=== PATIENT | female | born 1975 | race Caucasian/White ===

== ENCOUNTER → 2018-03-08 15:05 | Outpatient (CLI) | payer BC, SELFPAY | PROVIDERS: Visit Provider Internal Medicine Cardiovascular Disease | DX: R00.0 Tachycardia, unspecified (principal); R06.00 Dyspnea, unspecified; R06.09 Other forms of dyspnea; R55 Syncope and collapse; E78.5 Hyperlipidemia, unspecified; I10 Essential (primary) hypertension; R06.83 Snoring; R40.0 Somnolence; R53.83 Other fatigue | CPT/HCPCS: 93225 ==

== ENCOUNTER → 2018-03-09 07:00 | Outpatient (CLI) | payer BC, OTHER, SELFPAY ==
--- NOTE | 2018-03-09 07:04 | NM_ITS ---
NM pul vent and perfuse CLINICAL INDICATION: Shortness of breath, syncope ITS.REASON: syncope and collapse ORDERING PHYSICIAN: Sander Ventura MD PATIENT AGE: 42 years Comparison: 03/09/2018 DOSE: 35.1 mCi technetium DTPA inhaled 8.36 mCi Tc MAA IV FINDINGS: Homogeneous activity is present throughout both lungs.No segmental or subsegmental defects are evident. Incidental note is made of gastric activity and may be consistent with some free technetium uptake within the stomach. IMPRESSION: Normal, no evidence of pulmonary embolus
--- NOTE | 2018-03-09 07:04 | CA_ITS ---
PROCEDURE: 2-D M-mode and color Doppler study INDICATIONS FOR THE TEST: Chest pain COPD Heart Murmur Tobacco SmokingX Palpitations Fatigue SyncopeX Edema HypertensionXDiabetes Mellitus Rheumatic Fever SOBXDOE ObesityXHyperlipidemiaX Family History HD Additional History R/O PE,TACHYCARDIA PATIENT INFORMATION HEIGHT:63 WEIGHT:211 GENDER: Female B/P:142/84 2-D/M-MODE INTERPRETATION: 2-D MEASUREMENTS OBSERVED VALUES IN CMS Right Ventricular Dimension (RVDd) 2.9 Interventricular Septum (Thickness)(IVsd) .8 Left Ventricular Internal Dimensions(LVIDd) 4.9 Left Ventricular Posterior Wall (Thickness)(LVPWd) .7 Aortic Root 3.1 Aortic Cusp Separation 2.0 Left Atrial Dimensions (LAD) 2.9 2D 1. Left atrium is normal size, left ventricle is normal size, left ventricle wall thickness is upper limit of the normal, there is preserved left ventricular systolic function, visually estimated ejection fraction 55% with no regional wall motion abnormality. 2. The right atrium and right ventricle are mildly enlarged with normal contractility. 3. The aortic, mitral and tricuspid valvular grossly normal. 4. The pulmonic valve is poorly visualized. 5. No significant pericardial effusion noted. DOPPLER INTERROGATION: Doppler interrogation of the aortic, mitral and tricuspid valve reveals presence of mild mitral and tricuspid regurgitation, tricuspid regurgitation jet velocity is inadequate for calculation of the right ventricular systolic pressure, diastolic parameters are within normal range. CONCLUSION: 1. Normal left ventricular size, preserved left ventricular systolic function, visually estimated ejection fraction 55% with no regional wall motion abnormality. Diastolic parameters are within normal range. 2. Mildly enlarged right atrium and right ventricle, contractility of the right ventricle is normal. 3. Mild mitral and tricuspid regurgitation 4. No significant pericardial effusion noted.
--- NOTE | 2018-03-09 08:25 | XR_ITS ---
XR chest 2V HISTORY: Shortness of breath, syncope ITS.REASON: PE,SOB ORDERING PHYSICIAN: Sander Ventura MD PATIENT AGE: 42 years COMPARISON: None FINDINGS: The cardiomediastinal silhouette and pulmonary vascularity are within normal limits. The lungs are clear without infiltrates, suspicious nodules, or pleural effusions. Calcified left hilar lymph nodes are present. No acute bony abnormalities. IMPRESSION: No acute finding
[2018-03-09 09:15] LABS: Microscopic, Urine URINE MICROSCOPIC (MICROSCOPIC)
[2018-03-09 09:35] LABS: Appearance,Urine CLEAR (Clear); Bilirubin,Urine Negative (Negative); Blood, Urine TRACE-L (Negative); Color,Urine YELLOW (Yellow); Glucose,Urine (UA) Negative (Negative); Ketones,Urine Negative (Negative); Leukocyte Esterase,Urine Negative (Negative); Nitrate,Urine Negative (Negative); Protein,Urine Negative (Negative); Urobilinogen,Urine 0.2 EU/dl (0.2)
[2018-03-09 09:45] LABS: Bacteria,Urine Trace /lpf
== END ==
PROVIDERS: PCP Family Medicine; Visit Provider Internal Medicine Cardiovascular Disease
DX: R55 Syncope and collapse (principal); R06.00 Dyspnea, unspecified; R00.0 Tachycardia, unspecified; R06.09 Other forms of dyspnea; E78.5 Hyperlipidemia, unspecified; I10 Essential (primary) hypertension; R06.83 Snoring; R53.83 Other fatigue; R40.0 Somnolence
CPT/HCPCS: 71046; 78582; 81001; 87086; 93306; A9540; A9567

== ENCOUNTER → 2018-04-09 15:27 | Outpatient (CLI) | payer BC, SELFPAY | PROVIDERS: Visit Provider Internal Medicine Cardiovascular Disease | DX: R40.0 Somnolence (principal); R53.83 Other fatigue; R42 Dizziness and giddiness | CPT/HCPCS: 95806 ==

== ENCOUNTER → 2018-06-27 09:56 | Outpatient (CLI) | payer BC, SELFPAY ==
--- NOTE | 2018-06-27 09:59 | MR_ITS ---
MR head/brain wo/w con HISTORY: Syncope, blackouts spells, lightheaded, disoriented, vertigo ITS.REASON: evaluation for aneurysm,brain lesion,embolism ORDERING PHYSICIAN: Trinh Denis MD PATIENT AGE: 42 years Comparison: None TECHNIQUE: Standard multiplanar multiecho sequences are performed without and with gadolinium enhancement . FINDINGS: No midline shift, mass effect, intracranial hemorrhage, or hydrocephalus is evident. No enhancing lesions are evident. The cerebellopontine angle, cerebellum, and brainstem have an unremarkable appearance there is no evidence of acute infarction. The hippocampal gyri are unremarkable and the temporal horns are symmetric. The pituitary, optic chiasm, and craniocervical junction have an unremarkable appearance. No large aneurysms are evident There is sinus air-fluid level within the left aspect of the sphenoid sinus. No mastoid effusion. IMPRESSION: 1. No acute intracranial findings. 2. Left sphenoid sinus disease with a small air-fluid level in the left aspect of the sphenoid sinus
--- NOTE | 2018-06-27 11:38 | HMH.ITSHM ---
Current Home Medications as stated by this patient Loida Lizama or front desk representative. []METOPROLOL ATORVASTATIN MONTELUKAST LEVOTHYROXINE SODIUM
--- NOTE | 2018-06-27 14:00 | HMH.TILT ---
Findings:: PROCEDURE: Upright tilt table test. REQUESTING PROVIDER: Trinh Denis MD INDICATION FOR PROCEDURE: Dizziness, near syncope, one episode of syncope HOME MEDICATIONS: Metoprolol Succinate 25 mg qd (held for past 2 days), Lipitor 10 mg qd, Levothyroxine 150 mcg qd, Montelukast 10 mg qd. PRE-TEST VITAL SIGNS: SITTING - HR 89 with NSR, BP 125/81, O2 sats 97% SUPINE - HR 85 with NSR, BP 142/64, O2 sats 99%. PROCEDURE SUMMARY: Patient was tilted upright at 85-90% for 30 minutes total with no syncope or near syncope. She did complain of being slightly light-headed when first tilted into the upright position, but this quickly resolved and she had no other complaints throughout the procedure. Her blood pressure slowly dropped to a low of 123/77 during the test (similar to her pretest sitting BP) but was not associated with any symptoms or complaints. HR increased to 103 bpm when tilted upright and then stayed between 88 and 107 bpm. O2 sats were high 90s throughout. COMPLICATIONS: none CONCLUSIONS: unremarkable tilt table test.
== END ==
PROVIDERS: PCP Family Medicine; Visit Provider Specialist
DX: M54.2 Cervicalgia (principal); R42 Dizziness and giddiness; R55 Syncope and collapse
CPT/HCPCS: 70553; A9576

== ENCOUNTER → 2018-06-28 07:59 | Outpatient (CLI) | payer BC, SELFPAY ==
--- NOTE | 2018-06-28 08:02 | MR_ITS ---
MR venography head wo con CLINICAL INDICATION: Syncope with dizziness ITS.REASON: evaluation for aneurysm,brain lesion,embolism ORDERING PHYSICIAN: Trinh Denis MD PATIENT AGE: 42 years Comparison: 06/27/2018 TECHNIQUE: 2-D [id number] images without contrast with 3-D MIP reformats FINDINGS: The posterior aspect of the superior sagittal sinus is not well demonstrated possibly due to flow artifact. Flow gap is present at the torcula. No other significant anomalies are evident. IMPRESSION: There is poor visualization of the posterior aspect of the superior sagittal sinus. This may only be related to artifact. This could be confirmed with CT angiogram if clinically desired. Otherwise negative
--- NOTE | 2018-06-28 08:02 | MR_ITS ---
MR angio neck wo con CLINICAL INDICATION: Dizziness with syncope ITS.REASON: evaluation for aneurysm,brain lesion,embolism ORDERING PHYSICIAN: Trinh Denis MD PATIENT AGE: 42 years Comparison: None TECHNIQUE: 3-D multislab [id number]-qt-[id number] images are obtained with MIP reformats. FINDINGS: The carotids within the neck have an unremarkable appearance. No stenosis or aneurysm is evident. Bilateral vertebral arteries are patent. The aortic arch and proximal great vessels are not well delineated on this exam. IMPRESSION: Negative MRA of the neck
== END ==
PROVIDERS: PCP Family Medicine; Visit Provider Specialist
DX: M54.2 Cervicalgia (principal); R42 Dizziness and giddiness; R55 Syncope and collapse
CPT/HCPCS: 70544; 70547

== ENCOUNTER 2018-09-05 17:00 | Outpatient (RCR) | payer BC, SELFPAY ==
--- NOTE | 2018-07-11 09:11 | HMH.PTOPEV ---
PT Outpatient Evaluation Rehab PT Outpatient Evaluation Start: 07/11/18 08:09 Freq: Status: Active Protocol: Document 07/11/18 08:29 JOAQUÍN (Rec: 07/11/18 09:10 JOAQUÍN [id number]) Electronically Signed By Alexander Alejandra, PT 07/11/18 08:29 Outpatient Therapy Subjective History Subjective History Pt reports to PT for c/o dizziness and one incident of passing/blacking out . Pt reports these S&S began on Mar.07. Pt reports she was walking into work and started feeling light headed, and vision started failing. Pt rpeorts she passed out and struck head on concrete. Pt rpeorts she was taken to ER, has seen cardiology, neurology and sees ENT tomorrow. Pt rpeorts she has had CT of head , neck, torso, EKG, cardiac enzyme work up, MRI of brain, MRV, MRA. Chief Complaint Other Symptom Type Other Symptoms Relieved By Rest/Positioning Symptoms Aggravated By Twisting,Walking Prior Functional Limitations None Current Functional Limitations Housework,Driving,Recreation Activity,Walking,Balance Symptom Description Intermittent Level of pain today (0-10) 0 Pain scale - at its best (0-10) 0 Pain scale - at its worst (0-10) 0 Balance Eval Subjective Hx of Complaint Comment began insidiously Mar 07 Chief Complaint Did you feel dizzy, unsteady or faint? Yes Activity at onset Walking Prior Functional Limitations Prior Functional [place] Level Fully Independent Current Functional Limitations Comment Severe motion sensitivity Hx of Falls Hx Falls Yes Number in last 6 months 1 Gait/Posture Asssessment General Gait Observation Shuffling Step Assistive Devices None / NA Level of Transfer Assist Standby Assistance Nystagmus Nystagmus Presence None Timed Up and Go Test 3. Is the Timed Up and Go Test result < yes 12 seconds? Oculomotor Gaze Oculomotor Gaze Nml: Smooth Pursuit Saccades Abn: [employer] Cancellation Cover/Uncover Cross Cover Outpatient Therapy Assessment Impairments Problems/Im
== END 2018-09-05 17:05 | disposition home or self-care (01) ==
LOC: PT 17:00
PROVIDERS: Visit Provider Specialist
DX: R42 Dizziness and giddiness (principal)
CPT/HCPCS: 97010; 97012; 97014; 97110; 97112; 97140; 97163; 97164; G0283

== ENCOUNTER 2020-10-31 15:05 | Emergency (ER) | payer BC, SELFPAY ==
--- NOTE | 2020-10-31 17:17 | HMH.EDUTC ---
[facility] [place] Disposition Clinical Impression: Viral syndrome, Exposure to COVID-19 virus Disposition: Home, Self-Care Condition on Discharge: Good Instructions: DI for COVID-19 (Suspected or Confirmed ), Preventing the Spread of Coronavirus Discharge Instructions Additional Instructions: Drink plenty of fluids. Take tylenol or ibuprofen for pain or fever. Take the medications as directed. Follow up with your regular doctor. GO TO THE ER FOR ANY WORSENING SYMPTOMS Quarantine until you know the results of your covid-19 test. If it is positive, the health department should call you and give you further instructions about your length of Quarantine and other things. Notify your school or workplace of your results and follow their instructions regarding return to work/school. Prescriptions: methylPREDNISolone [Medrol] 4 mg PO DIRECTED 6 Days #21 tab.ds.pk Transmission Status: Pending to [facility] Benzonatate [Tessalon Perle 100mg Cap] 100 mg PO TIDP PRN #30 cap PRN Reason: Cough Transmission Status: Pending to [facility] Azithromycin [Z-Buddy 250mg Tab*] 250 mg PO UD DOSE PK #6 tab Transmission Status: Pending to [facility] Referrals: Tico Jordan MD [Primary Care Provider] - Time of Disposition: 17:25 Medical Decision Making - Medical Records Medical records reviewed: No: I reviewed the patient's medical records. - Hieu Inquiry Pt receiving controlled substance: No - Lab Data Lab results reviewed: Yes: I reviewed the patient's lab results. [facility] [place] HPI - General Stated complaint: covid test Time Seen by Provider: 10/31/20 17:18 Source of Information: Patient - History of Present Illness Provider Complaint: She states that for the past 2 days, she has felt bad, ran a fever and had body aches. 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 She was around him all last week. She has not been vaccinated against covid. - Related Data Home Medications Medication Instructions Recorded Confirmed Atorvastatin Calcium [Lipitor 10mg 10 mg PO DAILY 06/15/17 03/28/19 Tablet] etonogestrel 68 mg subdermal 1 dose SUBDERMAL DAILY each 03/08/18 03/28/19 implant levothyroxine 100 mcg tablet 150 mcg PO DAILY tab 04/20/18 03/28/19 Montelukast Sodium [Montelukast 10 mg PO QPM 06/11/18 03/28/19 10mg Tab] albuterol sulfate 90 mcg/actuation INHALATION 03/28/19 03/28/19 aerosol inhaler beclomethasone dipropionate 80 INHALATION 03/28/19 03/28/19 mcg/actuation HFA breath activated aerosol cetirizine 10 mg tablet 10 mg PO DAILY tab 03/28/19 03/28/19 Previous Rx's Medication Instructions Recorded Famotidine [Pepcid 20mg Tablet] 20 mg PO DAILY 30 Days #30 tab 03/24/19 azithromycin 250 mg tablet 250 mg PO QDAY 5 Days #6 tab 03/28/19 Azithromycin [Z-Buddy 250mg Tab*] 250 mg PO UD DOSE PK #6 tab 10/31/20 Benzonatate [Tessalon Perle 100mg 100 mg PO TIDP PRN #30 cap 10/31/20 Cap] methylPREDNISolone [Medrol] 4 mg PO DIRECTED 6 Days #21 10/31/20 tab.ds.pk Allergies Allergy/AdvReac Type Severity Reaction Status Date / Time penicillin G [PENICILLIN G] Allergy Mild Verified 03/28/19 16:02 [facility] History - Hepatitis A Screen Attestation statement:: This patient has been screened for Hepatitis A risk factors. I have reviewed the patient's past medical history: Yes Medical History: Reports:: Anxiety, Hyperlipidemia, Hypertension, Kidney Stones Denies:: Diabetes Mellitus Type 1, Diabetes Mellitus Type 2 Other Medical History: Reports: Hypothyroidism Comment: Endometrosis Other Surgeries: Yes: Cholecystectomy, , Diagnostic Lap Amputation: No Fractures: No - Social History Smoking Status: Former smoker # Packs/Day (cigarettes): 1 Alcohol Intake: never Alcohol Intake Frequency:: other Substance Use Type: denies use Occupational Status: employed Housing: house Household Members: family - Psychiatric History P
[2020-10-31 17:19] VITALS: BP 145/105; PULSE 108; RESP 22; TEMP 36.6; O2SAT 97; BMI 44.1
[2020-10-31 17:38] VITALS: BP 0/0; PULSE 0; RESP 0; TEMP -17.7; TEMP 0
== END 2020-10-31 17:45 | disposition home or self-care (01) ==
PROVIDERS: Emergency Provider Nurse Practitioner Family; PCP Family Medicine
DX: Z20.822 Contact with and (suspected) exposure to COVID-19 (principal); I10 Essential (primary) hypertension; F41.9 Anxiety disorder, unspecified; E03.9 Hypothyroidism, unspecified; E78.5 Hyperlipidemia, unspecified; Z79.899 Other long term (current) drug therapy
CPT/HCPCS: 99202; G0463; U0003

== ENCOUNTER → 2021-12-29 08:54 | Outpatient (CLI) | payer BC, SELFPAY ==
[2021-12-29 09:35] VITALS: PULSE 86; PULSE 90
--- NOTE | 2021-12-29 10:31 | FL_ITS ---
FINAL REPORT CLINICAL HISTORY: . sniff test, fluoro time 0:28, diaphragm disfunction FINDINGS: SNIFF TEST HISTORY: Shortness of breath. FINDINGS: A sniff test was performed under fluoroscopy. There was symmetrical excursion of the hemidiaphragms bilaterally during breathing and sniff maneuvers. No paradoxical movement was noted with either hemidiaphragm. FLUOROSCOPY TIME: 28 seconds. 4 cine runs were obtained. IMPRESSION: Unremarkable sniff test. Films reviewed , interpreted and dictated by Dr. Sosa. Transcribed by Maurilio Stockton PA-C. Reviewed, Interpreted and Dictated by Luís Sosa III, MD Transcribed by DONATO Triplett Authenticated and [facility]
== END ==
PROVIDERS: PCP Family Medicine; Visit Provider Internal Medicine Pulmonary Disease
DX: J98.6 Disorders of diaphragm (principal)
CPT/HCPCS: 76000; 94060; 94618; 94640; 94726; 94729

== ENCOUNTER 2023-01-15 10:48 | Emergency (ER) | payer BC, SELFPAY ==
[2023-01-15 11:00] VITALS: BP 141/86; PULSE 94; RESP 18; TEMP 36.8; O2SAT 98; BMI 39.6
--- NOTE | 2023-01-15 11:17 | EXP.UTC ---
Discharge Plan Disposition Patient Disposition: Home, Self-Care Condition: Good Prescriptions Prescriptions: New azithromycin [Zithromax Z-Buddy] 250 mg tablet See Rx Instructions .ROUTE .COMPLEX 5 Days Qty: 6 0RF Rx Instructions: For 250 mg dose pack: take 500 mg today (day 1), then 250 mg for 4 days (days 2-5) methylprednisolone [Medrol (Buddy)] 4 mg tablets,dose pack See Rx Instructions .Route .COMPLEX 6 Days Qty: 21 0RF Rx Instructions: taper pack; No Action ascorbic acid-elderberry fruit 100-50 mg tablet,chewable PO .[place] Fish Oil 350-600 mg capsule PO DAILY azelastine 205.5 mcg (0.15 %) spray,non-aerosol 2 spray intranasal BID 90 Days Qty: 30 3RF Rx Instructions: administer into each nostril montelukast 10 mg tablet 10 mg PO QPM 90 Days Qty: 90 3RF Trelegy Ellipta 200-62.5-25 mcg blister with device 1 inh inhalation DAILY 90 Days Qty: 90 3RF losartan 50 mg tablet 50 mg PO DAILY rosuvastatin [Crestor] 20 mg tablet 20 mg PO DAILY Nexplanon 68 mg implant 1 dose SUBDERMAL DAILY loratadine [Allergy Relief (loratadine)] 10 mg tablet 10 mg PO DAILY cholecalciferol (vitamin D3) 25 mcg (1,000 unit) capsule 25 mcg PO DAILY biotin 5,000 mcg tablet,disintegrating 10,000 mcg PO DAILY albuterol sulfate 90 mcg/actuation HFA aerosol inhaler 2 inh inhalation Q6H PRN (Reason: shortness of breath or wheezing) 90 Days Qty: 8.5 3RF atorvastatin 10 MG tablet 10 mg PO DAILY levothyroxine 100 mcg tablet 150 mcg PO DAILY Referrals Follow up/Referrals: Pineda Ta II, MD [Primary Care Provider] - See instructions Activity Restrictions/Add. Instructions Additional Instructions/Restrictions: *Monitor Temp, Over the counter Motrin or Tylenol as directed/as needed Tylenol every 4 hours and Motrin every 6 hours (as long as your family doctor has told you that you can take it) for fever or pain. and straight to ER if unable to lower temp less than 101.0 after medication given *Warm salt water gargles may help to soothe the throat *Throat Lozenges? *Warm fluids like tea with honey may help to soothe the throat? *Sleep elevated *Humidifier/Vaporizer Your throat swab was sent for culture. Those results are typically sent to your primary care. Be sure to follow up in 2-3 days with your family doctor/primary care physician if no improvement so they can review those result and treat if necessary. If you don?t have a primary care doctor, I recommend you get one but in the mean time, you will have to return to a walk in clinic Follow up IMMEDIATELY for new or worsening symptoms or no Noticeable improvement over the next 48-72 hours. 911 for difficulty breathing or swallowing Clinical Impressions Clinical Impression: Pharyngitis Qualifiers: Pharyngitis/tonsillitis etiology: unspecified etiology Qualified Code(s): J02.9 - Acute pharyngitis, unspecified Instructions Patient Instructions: Sore Throat Discharge ED Provider: Sue Ghotra [facility] General Stated complaint: sore throat, hard to swallow, tonsils swollen Mode of Arrival: Ambulatory Source of Information: Patient Limitations: No Limitations Time Seen by Provider: 01/15/23 11:17 Description of Symptoms (Recalled from Triage Doc. by RN): PATIENT C/O SWELLING AND IRRITATION TO THROAT SINCE YESTERDAY HEENT Symptoms (Recalled from RN notes): Yes Resp Symptoms (Recalled from RN notes): No Skin Symptoms (Recalled from RN notes): No MS Symptoms (Recalled from RN notes): No Functional Status (Recalled from RN notes): WNL History of Present Illness Provider Complaint: Patient states that she has been having sore throat and irritation in the back of her throat since yesterday States that hurts when she swallows and throat feels scratchy and sore States today her throat was hurting worse so she came in to get checked Rela
[2023-01-15 11:26] LABS: UTC Strep Screen (Rapid) Negative (Negative)
[2023-01-15 11:30] VITALS: BP 141/86; PULSE 94; RESP 18; TEMP 36.8; O2SAT 98
== END 2023-01-15 11:32 | disposition home or self-care (01) ==
PROVIDERS: Emergency Provider Nurse Practitioner; PCP Pediatrics
DX: J02.9 Acute pharyngitis, unspecified (principal); J45.909 Unspecified asthma, uncomplicated; I10 Essential (primary) hypertension; E03.9 Hypothyroidism, unspecified; Z87.891 Personal history of nicotine dependence
CPT/HCPCS: 87880; 99212; 99214; G0463

== ENCOUNTER 2023-07-21 07:57 | Outpatient (CLI) | payer BC, SELFPAY ==
[2023-07-21 08:40] VITALS: PULSE 87; PULSE 95
[2023-07-21] MEDS: ALBUTEROL 0.083% 2.5 MG/3 ML NEB IH (08:40)
== END 2023-07-21 23:59 | disposition home or self-care (01) ==
LOC: RT 07:58
PROVIDERS: PCP Family Medicine; Visit Provider Internal Medicine Pulmonary Disease
DX: R06.09 Other forms of dyspnea (principal); J44.9 Chronic obstructive pulmonary disease, unspecified; Z87.891 Personal history of nicotine dependence
CPT/HCPCS: 94060; 94618; 94640

== ENCOUNTER 2023-09-12 16:15 | Emergency (ER) | payer BC, SELFPAY ==
--- NOTE | 2023-09-12 16:28 | ED_ITS ---
Discharge Plan Disposition Patient Disposition: Home, Self-Care Condition: Good Prescriptions Prescriptions: New azithromycin [Zithromax] 250 mg tablet 250 mg PO UD DOSE PK Qty: 6 0RF Rx Instructions: Take two (2) tablets today, then one (1) tablet days #2 thru #5 triamcinolone acetonide 0.1 % cream 1 applic topical BID PRN (Reason: itching) Qty: 30 0RF benzonatate 100 mg capsule 100 mg PO TIDP PRN (Reason: Cough) Qty: 30 0RF methylprednisolone 4 mg Tablets,Dose Pack 4 mg PO DIRECTED 6 Days Qty: 21 0RF Rx Instructions: Take 1 pack as directed for 6 days No Action ascorbic acid-elderberry fruit 100-50 mg tablet,chewable PO .b[place] Fish Oil 350-600 mg capsule PO DAILY azelastine 205.5 mcg (0.15 %) spray,non-aerosol 2 spray intranasal BID 90 Days Qty: 30 3RF Rx Instructions: administer into each nostril montelukast 10 mg tablet 10 mg PO QPM 90 Days Qty: 90 3RF Trelegy Ellipta 200-62.5-25 mcg blister with device 1 inh inhalation DAILY 90 Days Qty: 90 3RF losartan 50 mg tablet 50 mg PO DAILY rosuvastatin [Crestor] 20 mg tablet 20 mg PO DAILY Nexplanon 68 mg implant 1 dose SUBDERMAL DAILY loratadine [Allergy Relief (loratadine)] 10 mg tablet 10 mg PO DAILY cholecalciferol (vitamin D3) 25 mcg (1,000 unit) capsule 25 mcg PO DAILY biotin 5,000 mcg tablet,disintegrating 10,000 mcg PO DAILY albuterol sulfate 90 mcg/actuation HFA aerosol inhaler 2 inh inhalation Q6H PRN (Reason: shortness of breath or wheezing) 90 Days Qty: 8.5 3RF atorvastatin 10 MG tablet 10 mg PO DAILY levothyroxine 100 mcg tablet 150 mcg PO DAILY methylprednisolone [Medrol (Buddy)] 4 mg tablets,dose pack See Rx Instructions .Route .COMPLEX 6 Days Qty: 21 0RF Rx Instructions: taper pack; Referrals Follow up/Referrals: Tico Jordan MD [Primary Care Provider] - See instructions Activity Restrictions/Add. Instructions Additional Instructions/Restrictions: Try to identify and avoid contact with the offending substance that has caused the rash on your arm. Don't put the topical steroids (triamcinolone) on your face or your groin. Take tylenol or ibuprofen for pain or fever. Take the medications as directed. Follow up with your regular doctor. GO TO THE ER FOR ANY WORSENING SYMPTOMS Clinical Impressions Clinical Impression: Sinusitis, Otitis media, Contact dermatitis, Bee sting Stand Alone Forms Stand Alone Forms: Work/School Release Instructions Patient Instructions: Sinusitis, DI for Sinusitis, Triamcinolone Topical, Methylprednisolone, Azithromycin Discharge ED Provider: Pacheco Souza [facility] General Stated complaint: severo,rash Time Seen by Provider: 09/12/23 16:28 History of Present Illness Provider Complaint: She states that for the past 2 days she has had sinus congestion, chest tightness, sore throat, fever, body aches, chills, and malaise. Related Data Home Medications Medication Instructions Recorded Confirmed atorvastatin 10 mg tablet 10 mg PO DAILY Cholesterol 06/15/17 01/13/23 etonogestrel 68 mg subdermal 1 dose subdermal DAILY 03/08/18 01/13/23 implant (Nexplanon) control levothyroxine 100 mcg tablet 150 mcg PO DAILY THYROID 04/20/18 01/13/23 biotin 5,000 mcg disintegrating 10,000 mcg PO DAILY 11/17/21 01/13/23 tablet cholecalciferol (vitamin D3) 25 25 mcg PO DAILY 11/17/21 01/13/23 mcg (1,000 unit) capsule loratadine 10 mg tablet (Allergy 10 mg PO DAILY 11/17/21 01/13/23 Relief (loratadine)) ascorbic acid 100 mg-elderberry tab PO .boston 12/31/21 01/13/23 fruit 50 mg chewable tablet omega-3s 350 tc-las-fht-other cap PO DAILY 06/02/22 01/13/23 [id number] oil 600 mg capsule (Fish Oil) losartan 50 mg tablet 50 mg PO DAILY 01/13/23 01/13/23 rosuvastatin 20 mg tablet (Crestor) 20 mg PO DAILY 01/13/23 01/13/23 Previous Rx's Medication Instructions Recorded albuterol sulfate 90 mcg/actuation 2 inh inhalation Q6H PRN shortness 01/17/22 aerosol inhaler of breath or wheezing 90 days #8.5 grams azelastine 205.5 mcg (0.15 %) 2 spray intranasal BID 90 days #30 06/02/22 nasal spray mL fluticasone fur. 200 mcg-umeclid 1 inh inhalation DAILY 90 days #90 06/02/22 62.5 mcg-vilant 25 mcg ea inhalat.powder (Trelegy Ellipta) montelukast 10 mg tablet 10 mg PO QPM 90 days #90 tabs 06/02/22 methylprednisolone 4 mg tablets in See Rx Instructions .Route 01/15/23 a dose pack (Medrol (Buddy)) .COMPLEX 6 days #21 tabs azithromycin 250 mg tablet 250 mg PO UD DOSE PK #6 tabs 09/12/23 (Zithromax) benzonatate 100 mg capsule 100 mg PO TIDP PRN Cough #30 caps 09/12/23 methylprednisolone 4 mg tablets in 4 mg PO DIRECTED 6 days #21 tabs 09/12/23 a dose pack triamcinolone acetonide 0.1 % 1 applic topical BID PRN itching 09/12/23 topical cream #30 grams Allergies Allergy/AdvReac Type Severity Reaction Status Date / Time penicillin G [PENICILLIN G] Allergy Mild Verified 09/12/23 16:57 [facility] Disclaimer: The information contained in this section may have been updated after the patient was seen, as this information can be updated by other users. Medical History Dyspnea on exertion Moderate persistent asthma Neuromuscular weakness Allergic rhinitis Dyspnea Asthma Hypothyroidism Sinusitis HTN (hypertension) Fatigue Daytime sleepiness Near syncope Dizziness There is no strong evidence to support central etiology. Intercurrent sinusitis may be contributing factor for dizziness but she was really treated for pansinusitis which residual sphenoidal inflammation. Plan: Referral to Dr. Mcadams, ENT and see if she needs further treatment. PT/ vestibular exercises. Return to work and drive after completion of vestibular exercises. Surgical History Hx of cholecystectomy History of section Family History Other Allergies Coronary artery disease Diabetes Hyperlipidemia Hypertension Social History Smoking Status: Former smoker alcohol intake: never substance use type: denies use current occupational status: employed Travel in the last 8 weeks: None household members: family housing: house ROS Obtained: Yes All systems reviewed & no additional complaints except as documented Constitutional Constitutional: Reports chills and Reports fever(s) Eyes Eyes: Denies eye discharge ENT Ears, Nose, Mouth, and Throat: Reports as per HPI Cardiovascular Cardiovascular: Denies chest pain Respiratory Respiratory: Denies chest congestion and Reports cough Gastrointestinal Gastrointestingal: Reports nausea; Denies abdominal pain, constipation, cramping, diarrhea or vomiting Musculoskeletal Musculoskeletal: Denies arthralgias Integumentary/Breasts Skin/Breast: Denies rash Neurologic Neurologic: Denies paresthesias Physical Exam General General appearance: alert and in no apparent distress Head Head exam: atraumatic, normocephalic and normal inspection Eye Eye exam: Present normal appearance, PERRL and EOMI ENT ENT exam: Present mucous membranes moist and normal external ear exam Expanded ENT Exam TM/Canal exam: Bilateral TM: erythema and bulging Nose exam: Absent sinus tenderness Mouth exam: Present normal external inspection; Absent drooling Teeth exam: Present normal inspection Throat exam: Present tonsillar erythema, tonsillomegaly and tonsillar exudate Neck Neck exam: Present normal inspection, full ROM and trachea midline; Absent tenderness, meningismus or lymphadenopathy Chest Chest inspection: Present normal inspection and symmetric chest wall rise; Absent tenderness Respiratory Respiratory exam: Present normal lung sounds bilaterally; Absent respiratory distress, wheezes, stridor or accessory muscle use Cardiovascular Cardiovascular exam: Present regular rate and normal rhythm; Absent systolic murmur or diastolic murmur Abdominal Exam Abdominal exam: Present soft and normal bowel sounds; Absent distention, tenderness, guarding, rebound or rigidity Extremities Exam Extremities exam: Present normal inspection and normal capillary refill; Absent calf tenderness Back Exam Back exam: Present normal inspection and full ROM; Absent tenderness, CVA tenderness (R) or CVA tenderness (L) Neurological Exam Neurological exam: Present alert, oriented X3 and CN II-XII intact Psychiatric Psychiatric exam: Present normal affect and normal mood Skin Skin exam: Present warm, dry, intact and normal color Medical Decision Making Medical Records Medical records reviewed: No I reviewed the patient's medical records. Hieu Inquiry Pt receiving controlled substance: No Lab Data Lab results reviewed: Yes I reviewed the patient's lab results.
[2023-09-12 16:52] VITALS: BP 129/87; PULSE 103; RESP 18; TEMP 37.6; O2SAT 97; BMI 44.2
[2023-09-12 17:05] LABS: Influenza A, PCR Not Detected (NotDetected); Influenza B, PCR Not Detected (NotDetected)
[2023-09-12 17:06] VITALS: BP 129/87; PULSE 103; RESP 18; TEMP 37.6
[2023-09-12 17:45] LABS: Coronavirus 19, PCR Detected (NotDetected)
== END 2023-09-12 17:08 | disposition home or self-care (01) ==
PROVIDERS: Emergency Provider Nurse Practitioner Family; PCP Family Medicine
DX: U07.1 COVID-19 (principal); J01.90 Acute sinusitis, unspecified; H66.93 Otitis media, unspecified, bilateral; L25.9 Unspecified contact dermatitis, unspecified cause; T63.441A Toxic effect of venom of bees, accidental (unintentional), initial encounter; W57.XXXA Bitten or stung by nonvenomous insect and other nonvenomous arthropods, initial encounter; R50.9 Fever, unspecified
CPT/HCPCS: 87636; 99212; 99214; G0463

== ENCOUNTER 2024-01-22 16:27 | Outpatient (CLI) | payer BC, SELFPAY ==
--- NOTE | 2024-01-22 16:30 | MM_ITS ---
PROCEDURE INFORMATION: Exam: MG Bilateral Screening 3D Mammography Exam date and time: 01/22/2024 4:34 PM Age: 48 years old Clinical indication: Baseline. No family history of breast cancer. TECHNIQUE: Imaging protocol: Bilateral Screening tomosynthesis and 2D mammography including computer-aided detection (CAD) when performed. COMPARISON: No relevant prior studies available. FINDINGS: MAMMOGRAPHY: Breast composition: There are scattered areas of fibroglandular density. Mass: Oval, questionably lobulated, 0.8 cm mass in the left upper inner quadrant, posterior 3rd, 8-10 cm from the nipple, CC image [id number] frame 25 and MLO image [id number] frame 14. Architectural distortion: None. Calcifications: No suspicious calcifications. Asymmetric density: None. Skin thickening: None. Axillary adenopathy: None. IMPRESSION: Patient will be recalled for left sonography for further evaluation of a mass. ASSESSMENT: BI-RADS Category 0: Incomplete: Need Additional Imaging Evaluation.
== END 2024-01-22 23:59 | disposition home or self-care (01) ==
LOC: RAD 16:28
PROVIDERS: PCP Pediatrics; Visit Provider Pediatrics
DX: Z12.31 Encounter for screening mammogram for malignant neoplasm of breast (principal)
CPT/HCPCS: 77063; 77067

== ENCOUNTER 2024-02-04 08:12 | Emergency (ER) | payer BC, SELFPAY ==
[2024-02-04 08:13] VITALS: BP 175/102; PULSE 88; RESP 20; TEMP 36.8; O2SAT 98; BMI 44.2
--- NOTE | 2024-02-04 08:28 | XR_ITS ---
PROCEDURE INFORMATION: Exam: XR Left Shoulder Exam date and time: 02/04/2024 8:39 AM Age: 48 years old Clinical indication: Pain; Shoulder; Left; Additional info: Atraumatic L shoulder pain, a/p gh joint pain TECHNIQUE: Imaging protocol: Radiologic exam of the left shoulder. Views: 2 or more views. COMPARISON: [facility] MR angio neck wo con 06/28/2018 8:13 AM FINDINGS: Bones/joints: The glenohumeral joint is intact. There is mild hypertrophy of the acromioclavicular joint. Soft tissues: Normal. IMPRESSION: Mild left acromioclavicular joint hypertrophy.
[2024-02-04 08:30] VITALS: BP 173/99; PULSE 80; O2SAT 96
[2024-02-04] MEDS: LIDOCAINE 5% TRANSDERMAL PATCH 1 EACH TP (08:34)
[2024-02-04] MEDS: predniSONE 20MG TAB 20 MG PO (08:35)
[2024-02-04] MEDS: ACETAMINOPHEN 500MG TAB 1000 MG PO (08:35)
[2024-02-04] MEDS: IBUPROFEN 600 MG TABLET PO (08:35)
[2024-02-04] MEDS: METHOCARBAMOL 500MG TABLET 1500 MG PO (08:40)
[2024-02-04 08:45] VITALS: PULSE 83; O2SAT 95
[2024-02-04 09:00] VITALS: BP 139/95; PULSE 81; O2SAT 96
--- NOTE | 2024-02-04 09:00 | ED_ITS ---
Discharge Plan Disposition Patient Disposition: Home, Self-Care Prescriptions Prescriptions: New prednisone 20 mg tablet 20 mg PO DAILY 5 Days Qty: 5 0RF No Action ascorbic acid-elderberry fruit 100-50 mg tablet,chewable PO .[place] Fish Oil 350-600 mg capsule PO DAILY azelastine 205.5 mcg (0.15 %) spray,non-aerosol 2 spray intranasal BID 90 Days Qty: 30 3RF Rx Instructions: administer into each nostril montelukast 10 mg tablet 10 mg PO QPM 90 Days Qty: 90 3RF Trelegy Ellipta 200-62.5-25 mcg blister with device 1 inh inhalation DAILY 90 Days Qty: 90 3RF losartan 50 mg tablet 50 mg PO DAILY rosuvastatin [Crestor] 20 mg tablet 20 mg PO DAILY Nexplanon 68 mg implant 1 dose SUBDERMAL DAILY loratadine [Allergy Relief (loratadine)] 10 mg tablet 10 mg PO DAILY cholecalciferol (vitamin D3) 25 mcg (1,000 unit) capsule 25 mcg PO DAILY biotin 5,000 mcg tablet,disintegrating 10,000 mcg PO DAILY albuterol sulfate 90 mcg/actuation HFA aerosol inhaler 2 inh inhalation Q6H PRN (Reason: shortness of breath or wheezing) 90 Days Qty: 8.5 3RF atorvastatin 10 MG tablet 10 mg PO DAILY levothyroxine 100 mcg tablet 112 mcg PO DAILY methylprednisolone [Medrol (Buddy)] 4 mg tablets,dose pack See Rx Instructions .Route .COMPLEX 6 Days Qty: 21 0RF Rx Instructions: taper pack; azithromycin [Zithromax] 250 mg tablet 250 mg PO UD DOSE PK Qty: 6 0RF Rx Instructions: Take two (2) tablets today, then one (1) tablet days #2 thru #5 triamcinolone acetonide 0.1 % cream 1 applic topical BID PRN (Reason: itching) Qty: 30 0RF benzonatate 100 mg capsule 100 mg PO TIDP PRN (Reason: Cough) Qty: 30 0RF methylprednisolone 4 mg Tablets,Dose Pack 4 mg PO DIRECTED 6 Days Qty: 21 0RF Rx Instructions: Take 1 pack as directed for 6 days Referrals Follow up/Referrals: Pineda Ta II, MD [Primary Care Provider] - See instructions Activity Restrictions/Add. Instructions Additional Instructions/Restrictions: Call your family doctor to establish care for this visit to the emergency department and schedule follow-up within 48 hours to ensure improvement. If you have any worsening of your condition or any other concerning signs or symptoms, return to the emergency department or your primary care doctor for further evaluation. Call physical therapy in order to schedule follow-up for your shoulder. If this does not work, call Dr. Temple's office for further evaluation and potential MRI. Steroid each morning for the next 5 days, you can take Tylenol 1000 mg 4 times daily to help with pain as well. Sling unless sleeping, be sure to use your left upper extremity, but do not overuse it. Clinical Impressions Clinical Impression: Acute pain of left shoulder Print Language Print Language: Egyptian Discharge ED Provider: Sukhdeep Pettit General Adult HPI General Chief complaint: PAIN Stated complaint: left shoulder pain Time Seen by Provider: 02/04/24 08:17 Mode of Arrival: Ambulatory Source of Information: Patient Limitations: No Limitations Description of Symptoms (Recalled from ER Triage Doc. by RN): pt woke up from a nap on monday afternoon with left shoulder pain that hasnt gone away or gotten any better despite taking tylenol or motrin History of Present Illness HPI narrative: Please note that above description of symptoms, in this electronic medical record under categorization of recalled from ER triage doctor by RN are reflective of an initial nursing assessment, however, is not reflective of my full history and physical exam that was personally taken and clarified. Consequentially, this preceding description of symptoms, which may include the patient's categorized chief complaint in the EMR, do not reflect my personal clinical impression, and the ultimate description of history of present illness and patient stated complaints should be deferred to this section of the note. Unless stated otherwise or congruent with this section of the note, additional signs, symptoms, or incongruence should be interpreted as inaccurate with my clinical impression. Related Data Home Medications ?Medication ?Instructions ?Recorded ?Confirmed atorvastatin 10 mg tablet 10 mg PO DAILY Cholesterol 06/15/17 12/20/23 etonogestrel 68 mg subdermal 1 dose subdermal DAILY 03/08/18 12/20/23 implant (Nexplanon) control biotin 5,000 mcg disintegrating 10,000 mcg PO DAILY 11/17/21 12/20/23 tablet cholecalciferol (vitamin D3) 25 25 mcg PO DAILY 11/17/21 12/20/23 mcg (1,000 unit) capsule loratadine 10 mg tablet (Allergy 10 mg PO DAILY 11/17/21 12/20/23 Relief (loratadine)) ascorbic acid 100 mg-elderberry tab PO .[place] 12/31/21 12/20/23 fruit 50 mg chewable tablet omega-3s 350 da-uuh-sdi-other cap PO DAILY 06/02/22 12/20/23 [id number] oil 600 mg capsule (Fish Oil) losartan 50 mg tablet 50 mg PO DAILY 01/13/23 12/20/23 rosuvastatin 20 mg tablet (Crestor) 20 mg PO DAILY 01/13/23 12/20/23 levothyroxine 100 mcg tablet 112 mcg PO DAILY THYROID 12/20/23 12/20/23 Previous Rx's ?Medication ?Instructions ?Recorded albuterol sulfate 90 mcg/actuation 2 inh inhalation Q6H PRN shortness 01/17/22 aerosol inhaler of breath or wheezing 90 days #8.5 grams azelastine 205.5 mcg (0.15 %) 2 spray intranasal BID 90 days #30 06/02/22 nasal spray mL fluticasone fur. 200 mcg-umeclid 1 inh inhalation DAILY 90 days #90 06/02/22 62.5 mcg-vilant 25 mcg ea inhalat.powder (Trelegy Ellipta) montelukast 10 mg tablet 10 mg PO QPM 90 days #90 tabs 06/02/22 methylprednisolone 4 mg tablets in See Rx Instructions .Route 01/15/23 a dose pack (Medrol (Buddy)) .COMPLEX 6 days #21 tabs azithromycin 250 mg tablet 250 mg PO UD DOSE PK #6 tabs 09/12/23 (Zithromax) benzonatate 100 mg capsule 100 mg PO TIDP PRN Cough #30 caps 09/12/23 methylprednisolone 4 mg tablets in 4 mg PO DIRECTED 6 days #21 tabs 09/12/23 a dose pack triamcinolone acetonide 0.1 % 1 applic topical BID PRN itching 09/12/23 topical cream #30 grams prednisone 20 mg tablet 20 mg PO DAILY 5 days #5 tabs 02/04/24 Allergies Allergy/AdvReac Type Severity Reaction Status Date / Time penicillin G (PENICILLIN G) Allergy Mild Verified 12/20/23 14:07 [facility] Disclaimer: The information contained in this section may have been updated after the patient was seen, as this information can be updated by other users. Medical History Dyspnea on exertion Moderate persistent asthma Neuromuscular weakness Allergic rhinitis Dyspnea Asthma Hypothyroidism Sinusitis HTN (hypertension) Fatigue Daytime sleepiness Near syncope Dizziness There is no strong evidence to support central etiology. Intercurrent sinusitis may be contributing factor for dizziness but she was really treated for pansinusitis which residual sphenoidal inflammation. Plan: Referral to Dr. Mcadams, ENT and see if she needs further treatment. PT/ vestibular exercises. Return to work and drive after completion of vestibular exercises. Surgical History Hx of cholecystectomy History of section Family History Other Allergies Coronary artery disease Diabetes Hyperlipidemia Hypertension Social History Smoking Status: Never smoker alcohol intake: never substance use type: denies use current occupational status: employed household members: family housing: house Other Medical History Have you received the Pneumonia Vaccine: No ROS Obtained: Yes All systems reviewed & no additional complaints except as documented Physical Exam General General appearance: alert and in no apparent distress Head Head exam: atraumatic and normocephalic Eye Eye exam: Present normal appearance, PERRL and EOMI Neck Neck exam: Present normal inspection, full ROM and trachea midline Respiratory Respiratory exam: Absent respiratory distress, wheezes, stridor, accessory muscle use or prolonged expiratory phase Cardiovascular Cardiovascular exam: Present other (Pulses equal symmetric in upper and lower extremities) Abdominal Exam Abdominal exam: Present soft; Absent distention, tenderness or pulsatile mass Extremities Exam Extremities exam: Present other (Tenderness primarily about bicipital groove on the left as well as supraspinatus and infraspinatus muscles. Pain improved with stabilization of scapula medially. Active range of motion limited secondary to pain, passive range of motion also limited secondary to pain, but intact); Absent edema Neurological Exam Neurological exam: Present alert, oriented X3 and CN II-XII intact; Absent motor sensory deficit Skin Skin exam: Present warm and dry; Absent diaphoresis or erythema Medical Decision Making Medical Records Medical records reviewed: Yes I reviewed the patient's medical records. Screening: Per USPSTF and CDC recommendations, given the prevalence of disease in our region, it is our hospital?s policy to screen for HIV and viral Hepatitis for all patients aged 18 and over and those with ongoing risk factors. Hieu Inquiry Pt receiving controlled substance: No Hieu was queried for this patient: No Vital Signs: 02/04/24 08:13 02/04/24 08:30 02/04/24 08:45 Temperature 98.2 F Temperature Source Oral Pulse Rate 80 83 Pulse Rate [Right Radial] 88 Respiratory Rate 20 Blood Pressure 173/99 H Blood Pressure [Right Arm] 175/102 H Blood Pressure Mean [Right Arm] 126 02 Sat by Pulse Oximetry 98 96 95 Oxygen Delivery Method Room Air 02/04/24 09:00 Temperature Temperature Source Pulse Rate 81 Pulse Rate [Right Radial] Respiratory Rate Blood Pressure 139/95 H Blood Pressure [Right Arm] Blood Pressure Mean [Right Arm] 02 Sat by Pulse Oximetry 96 Oxygen Delivery Method Orders (Tests/Meds): ED MEDICATIONS Discontinued Medications Generic Name Dose Route Start Last Admin Trade Name Daneq PRN Reason Stop Dose Admin Acetaminophen 1,000 mg 02/04/24 08:27 02/04/24 08:35 Acetaminophen 500mg Tab PO 02/04/24 08:28 1,000 mg ONCE ONE Administration Ibuprofen 600 mg 02/04/24 08:27 02/04/24 08:35 Ibuprofen 600 Mg Tablet PO 02/04/24 08:28 600 mg ONCE ONE Administration Lidocaine 1 each 02/04/24 08:27 02/04/24 08:34 Lidocaine 5% Transdermal Patch TP 02/04/24 08:28 1 each ONCE ONE Administration Methocarbamol 1,500 mg 02/04/24 08:27 02/04/24 08:40 Methocarbamol 500mg Tablet PO 02/04/24 08:28 1,500 mg ONCE ONE Administration Prednisone 20 mg 02/04/24 08:27 02/04/24 08:35 Prednisone 20mg Tab PO 02/04/24 08:28 20 mg ONCE ONE Administration ORDERS Category Date Time Status Shoulder XR left minimum 2 views [XR shoulder LT min 2V Exams 02/04/24 08:28 Completed ] Stat Medical Decision Narrative: This is a 48-year-old female with history of hypertension, hyperlipidemia, prediabetes, asthma, presenting with left-sided shoulder pain. Patient states that she woke up with the shoulder pain several days prior to this. States that it has been getting worse since that time. No injury to the shoulder recently or previously, no numbness, tingling, or weakness, it is essentially all pain. Pain is primarily in anterior shoulder when asked to point. It is moderate to severe, does not radiate. Made worse with range of motion of shoulder actively. Has not taken any medications to try to make it any better. No fevers or chills, swelling, or any other outward abnormalities. History obtained with the patient. On arrival, patient in no acute distress, but holding her arm in internal rotation and elbow flexion. Neurovascularly intact. Tenderness primarily about bicipital groove on the left as well as supraspinatus and infraspinatus muscles. Pain improved with stabilization of scapula medially. Active range of motion limited secondary to pain, passive range of motion also limited secondary to pain, but intact. Tender on flexion, extension, abduction, adduction, all shoulder range of motion. No evidence of frozen shoulder. Differential includes soft tissue/rotator cuff injury, joint subluxation versus atraumatic dislocation, osteoarthritis, less likely to be septic joint, fracture, among others. Patient given acetaminophen, ibuprofen, lidocaine patch, Robaxin, prednisone 20 mg. X-rays to be obtained. X-rays on independent interpretation are negative for any acute pathology. Calcified 28 mm nodule on left side of chest appears stable and a bit smaller than it was in 2019 on co mparative chest x-ray. On reevaluation, patient resting at baseline. Meds were discussed, patient declining any home-going meds at this time other than steroid. Sling applied, outpatient follow-up was recommended with orthopedics and family doctor, as well as physical therapy. Voiced understanding. Because patient at baseline without signs or symptoms of clinical decompensation, deemed appropriate for discharge. Results were relayed to patient who voiced understanding and were agreeable to outpatient management and follow up. I discussed my clinical impression with patient and answered all questions. At this time, the evidence for any other entities in the differential is insufficient to warrant any further testing or ED observation. This was explained as well. Advisory was given that persistent or worsening symptoms require further evaluation. I confirmed the understanding of this discussion. Chemical Equipment Repairer disclaimer Much of this encounter note is an electronic railroad signal and switch operator spoken language to printed text. Electronic railroad signal and switch operator of the spoken language may permit errors. Although I have reviewed the note, some errors may still exist. Critical Care Critical Care Time Critical Care Time: No
[2024-02-04 09:41] VITALS: BP 134/92; PULSE 73; RESP 18; TEMP 36.8; O2SAT 98
--- NOTE | 2024-02-05 10:22 | PC.NURSE ---
pt's mother called to as questions regarding PT order. PT will need physical order for this pt to be evaluated. Outpatient order completed and sent to PT.
== END 2024-02-04 09:52 | disposition home or self-care (01) ==
PROVIDERS: Emergency Provider Emergency Medicine; PCP Pediatrics
DX: M25.512 Pain in left shoulder (principal)
CPT/HCPCS: 73030; 99283

== ENCOUNTER 2024-02-14 17:00 | Outpatient (RCR) | payer BC, SELFPAY | END 2024-02-14 23:59 | disposition home or self-care (01) | LOC: PT 17:00 | PROVIDERS: PCP Pediatrics; Visit Provider Pediatrics | DX: M25.512 Pain in left shoulder (principal) | CPT/HCPCS: 97110; 97163 ==

== ENCOUNTER 2024-02-19 09:45 | Day surgery (SDC) | payer BC, SELFPAY ==
[2024-02-16 13:26] VITALS: BMI 44.2
--- NOTE | 2024-02-19 09:55 | US_ITS ---
PROCEDURE INFORMATION: Exam: US Left Breast, Complete Exam date and time: 02/19/2024 10:06 AM Age: 48 years old Clinical indication: Callback from screening mammogram for a questionable mass in the left breast. TECHNIQUE: Imaging protocol: Complete ultrasound of all four quadrants of the left breast and the retroareolar regions, including ultrasound of the axilla when performed. COMPARISON: MG MM DIG SCREENING MAMM BI W/CAD 01/22/2024 4:34 PM FINDINGS: ULTRASOUND: Breast ultrasound findings: Complete scanning of the left breast is performed. There are no suspicious masses. No correlate to the question mass in the upper inner left breast on screening. No axillary adenopathy. IMPRESSION: 1. No sonographic evidence of malignancy. No correlate to the left breast finding on screening mammogram. 2. Six-month follow-up left breast mammogram is recommended. ASSESSMENT: BI-RADS Category 3: Probably benign.
--- NOTE | 2024-02-19 10:56 | P.HP_ITS ---
History of Present Illness *Admission Date: 02/19/24 *Reason for visit:: Screening colonoscopy *History of present illness: Mrs. Lizama is a 48-year-old female who is here for initial screening colonoscopy. The examination is deemed medically necessary for screening colonoscopy. The patient has been seen, interviewed and examined prior to the procedure by both myself and the anesthesia provider. [facility] Disclaimer: The information contained in this section may have been updated after the patient was seen, as this information can be updated by other users. Medical History Dyspnea on exertion Moderate persistent asthma Neuromuscular weakness Allergic rhinitis Dyspnea Asthma Hypothyroidism Sinusitis HTN (hypertension) Fatigue Daytime sleepiness Near syncope Dizziness There is no strong evidence to support central etiology. Intercurrent sinusitis may be contributing factor for dizziness but she was really treated for pansinusitis which residual sphenoidal inflammation. Plan: Referral to Dr. Mcadams, ENT and see if she needs further treatment. PT/ vestibular exercises. Return to work and drive after completion of vestibular exercises. Surgical History Hx of cholecystectomy History of section Family History Other Allergies Coronary artery disease Diabetes Hyperlipidemia Hypertension Social History Smoking Status: Never smoker alcohol intake: never substance use type: denies use current occupational status: employed Travel in the last 8 weeks: None household members: family housing: house Have you lived/traveled outside US in past 30 days?: No Contact w/someone who lives/traveled outside US past 30 days?: No Exposure to someone with infectious disease in past 14 days?: No Do you have a fever (greater than 100.4 F or 38 C)?: No Have you tested positive for COVID-19: No Exposed to someone with COVID-19 in past 14 days?: No Do you have a sore throat?: No Do you have a cough?: No Do you have any weakness?: No Do you have any diarrhea?: No Are you experiencing any unusual bleeding?: No Do you have any muscle aches/pain?: No Do you have any abdominal pain?: No Are you experiencing loss of taste or smell?: No Other Medical History Have you received the Pneumonia Vaccine: No Review of Systems Review of Systems Review of systems (narrative): Negative *Cardiovascular Comments: Negative *Gastrointestinal Comments: Negative *Genitourinary Comments: Negative *Musculoskeletal Comments: Negative *Neurologic Comments: Negative Meds Home Medications and Allergies Home Medications ?Medication ?Instructions ?Recorded ?Confirmed ?Type atorvastatin 10 mg tablet 10 mg PO DAILY Cholesterol 06/15/17 02/16/24 History etonogestrel 68 mg subdermal 1 dose subdermal DAILY 03/08/18 02/16/24 History implant (Nexplanon) control biotin 5,000 mcg disintegrating 10,000 mcg PO DAILY 11/17/21 02/16/24 History tablet cholecalciferol (vitamin D3) 25 25 mcg PO DAILY 11/17/21 02/16/24 History mcg (1,000 unit) capsule loratadine 10 mg tablet (Allergy 10 mg PO DAILY 11/17/21 02/16/24 History Relief (loratadine)) albuterol sulfate 90 mcg/actuation 2 inh inhalation Q6H PRN shortness 01/17/22 02/16/24 Rx aerosol inhaler of breath or wheezing 90 days #8.5 grams azelastine 205.5 mcg (0.15 %) 2 spray intranasal BID 90 days #30 06/02/22 02/16/24 Rx nasal spray mL fluticasone fur. 200 mcg-umeclid 1 inh inhalation DAILY 90 days #90 06/02/22 02/16/24 Rx 62.5 mcg-vilant 25 mcg ea inhalat.powder (Trelegy Ellipta) montelukast 10 mg tablet 10 mg PO QPM 90 days #90 tabs 06/02/22 02/16/24 Rx omega-3s 350 at-aqo-aiy-other 1 cap PO DAILY 06/02/22 02/16/24 History [id number]-vsdx oil 600 mg capsule (Fish Oil) losartan 50 mg tablet 50 mg PO DAILY 01/13/23 02/16/24 History rosuvastatin 20 mg tablet (Crestor) 20 mg PO DAILY 01/13/23 02/16/24 History triamcinolone acetonide 0.1 % 1 applic topical BID PRN itching 09/12/23 12/20/23 Rx topical cream #30 grams levothyroxine 100 mcg tablet 112 mcg PO DAILY THYROID 12/20/23 02/16/24 History sodium,potassium,mag sulfates 17.5 See Rx Instructions PO .COMPLEX 02/09/24 Rx gram-3.13 gram-1.6 gram oral soln #354 mL (Suprep Bowel Prep Kit) New Prescriptions to Start Prescriptions: Allergies Allergy/AdvReac Type Severity Reaction Status Date / Time penicillin G (PENICILLIN G) Allergy Mild Anaphylaxis Verified 02/19/24 11:03 Exam Data for Last 24 hours I & O for Last 24 hours: Intake & Output 02/16/24 02/17/24 02/18/24 02/19/24 23:59 23:59 23:59 23:59 Weight 250 lb *Routine HEENT Exam Head: Present normocephalic Eye: Present EOMI and PERRL ENT: Present mucous membranes moist *Routine Neck Exam Neck: Present supple *Routine Respiratory Exam Respiratory: Present CTA bilaterally *Routine Cardiovascular Exam Cardiovascular: Present RRR *Routine Abdominal Exam Abdominal: Present soft and normoactive bowel sounds; Absent tenderness *Routine Rectal Exam Rectal:: deferred *Routine Genitalia Exam Genitalia:: deferred *Routine Extremities Exam Extremities: Absent cyanosis, clubbing or edema *Routine Skin Exam Skin: Present warm; Absent rash *Routine Neurological Exam Neurological: Present alert and oriented X3 Assessment and Plan *Assessment and plan (1) Screening for malignant neoplasm of colon: Status: Acute Category: Medical Code(s): Z12.11 - Encounter for screening for malignant neoplasm of colon Plan A/P: 1. Screening for colon cancer is the preprocedural diagnosis. The patient will be anesthetized/sedated using MAC sedation. The patient has been seen and examined. Cardiac and lung assessment prior to the examination is stable. Proceed with planned screening colonoscopy
[2024-02-19 11:04] VITALS: BP 136/78; PULSE 98; RESP 16; TEMP 36.3; O2SAT 97
[2024-02-19] MEDS: LACTATED RINGERS 1000ML 1,000 ML 25 ML IV (11:04)
[2024-02-19 11:10] LABS: Urine Pregnancy, HCG Qual. Negative (Negative)
--- NOTE | 2024-02-19 11:13 | P.PNANES_ITS ---
[facility] Disclaimer: The information contained in this section may have been updated after the patient was seen, as this information can be updated by other users. Medical History Dyspnea on exertion Moderate persistent asthma Neuromuscular weakness Allergic rhinitis Dyspnea Asthma Hypothyroidism Sinusitis HTN (hypertension) Fatigue Daytime sleepiness Near syncope Dizziness There is no strong evidence to support central etiology. Intercurrent sinusitis may be contributing factor for dizziness but she was really treated for pansinusitis which residual sphenoidal inflammation. Plan: Referral to Dr. Mcadams, ENT and see if she needs further treatment. PT/ vestibular exercises. Return to work and drive after completion of vestibular exercises. Surgical History Hx of cholecystectomy History of section Family History Other Allergies Coronary artery disease Diabetes Hyperlipidemia Hypertension Social History Smoking Status: Never smoker alcohol intake: never substance use type: denies use current occupational status: employed Travel in the last 8 weeks: None household members: family housing: house Have you lived/traveled outside US in past 30 days?: No Contact w/someone who lives/traveled outside US past 30 days?: No Exposure to someone with infectious disease in past 14 days?: No Do you have a fever (greater than 100.4 F or 38 C)?: No Have you tested positive for COVID-19: No Exposed to someone with COVID-19 in past 14 days?: No Do you have a sore throat?: No Do you have a cough?: No Do you have any weakness?: No Do you have any diarrhea?: No Are you experiencing any unusual bleeding?: No Do you have any muscle aches/pain?: No Do you have any abdominal pain?: No Are you experiencing loss of taste or smell?: No [facility] Anesthesia Checklist Patient Identification Patient Identification: Arm Band Structural Data Admitted From: Home Planned Operative Procedure/s: Colonoscopy Consent for Planned Operative Procedure(s) Verified: Yes Verified Documents: Surgical Consent and History and Physical NPO Status Verified Time NPO: 04:30 (finished prep) Additional verifications Anesthesia Reactions: No Airway Assessment Mallampati Score:: Class II C-Spine Mobility Assessed: Yes TMJ Mobility Assessed: Yes Dentition: Good Dentition Neurological Assessment Level of Consciousness: Awake, Alert and Appropriate Anesthesia Plan Anesthesia Risk discussed: Yes Anesthesia Plan: Verified ASA Class: III Anesthesia Type: MAC
[2024-02-19 11:18] VITALS: O2SAT 99
--- NOTE | 2024-02-19 11:21 | HMH.PROCNOTE ---
[facility] Procedure Note Date: 02/19/24 Time: 11:38 Procedure Note:: Colonoscopy Procedure Report: Colonoscopy with cold snare polypectomy Endoscopist: Matt Underwood II, MD Referring physician: Pineda Ta MD Date of Procedure: February 19, 2024 Equipment: Olympus 190 variable stiffness pediatric colonoscope Sedation: MAC sedation Indication: Mrs. Lizama is a 48-year-old female who is here for initial screening colonoscopy. She reports no abdominal pain, weight loss, change in her bowel habits or rectal bleeding. She reports no family history of colon cancer. Procedure: Prior to the procedure, a history and physical exam was performed, and patient's medications and allergies were reviewed. The risks, benefits and alternatives of the sedation and procedure were discussed with the patient. All questions were answered and informed consent was obtained. The patient was brought to the procedure room. Patient identification and proposed procedure were verified by the physician and the nurse. The patient was placed in a left lateral decubitus position and the scope was passed under direct vision. Throughout the procedure, the patient's blood pressure, pulse, and oxygen saturations were monitored continuously. The colonoscopy was accomplished without difficulty. The patient tolerated the procedure well. Findings: On digital rectal examination there was normal rectal tone. There were no external hemorrhoids. The colonoscope was introduced through the anal canal to the rectum and advanced to the cecum. The ileocecal valve and appendiceal orifice were identified. The scope was advanced a short distance into the ileum which appeared grossly normal. The scope was then withdrawn into the colon. The cecum and ascending colon and mucosa were grossly normal. There was a single 4 mm polyp in the transverse colon removed via cold snare polypectomy. There were scattered diverticuli throughout the descending and sigmoid colon (LEFT colon). The rectum itself was normal. Upon retroflexion within the rectum there were grade 1-2 internal hemorrhoids. The preparation was excellent throughout with Locust Preparation Score of 9. The cecal time was 12 minutes. Impression: 1. Diminutive 4 mm transverse colon polyp 2. Left-sided diverticulosis 3. Grade 1-2 internal hemorrhoids Plan: I will follow-up the polyp histology and recommend repeat surveillance colonoscopy again in 7 to 10 years based upon the pathology. I would encourage psyllium bulking fiber supplementation on a long-term daily maintenance basis.
[2024-02-19 11:41] VITALS: BP 103/60; PULSE 101; RESP 18; TEMP 36.2; O2SAT 90
[2024-02-19 11:51] VITALS: BP 109/68; PULSE 103; RESP 17; O2SAT 92
[2024-02-19 12:01] VITALS: BP 106/72; PULSE 102; RESP 17; O2SAT 96
[2024-02-19 12:11] VITALS: BP 107/73; PULSE 85; RESP 17; O2SAT 96
== END 2024-02-19 12:30 | disposition home or self-care (01) ==
PROVIDERS: PCP Pediatrics; Visit Provider Internal Medicine Gastroenterology
PROC: (CPT 45385; principal; 2024-02-19 11:30)
DX: Z12.11 Encounter for screening for malignant neoplasm of colon (principal); K63.5 Polyp of colon; K57.30 Diverticulosis of large intestine without perforation or abscess without bleeding; K64.8 Other hemorrhoids
CPT/HCPCS: 45385; 76641; 81025; J7120

== ENCOUNTER 2024-12-15 11:47 | Emergency (ER) | payer BC, SELFPAY ==
[2024-12-15] VITALS (8 sets, daily range): BP systolic 131–170; BP diastolic 69–98; PULSE 80–93; RESP 8–18; TEMP 36.8; O2SAT 97–100; BMI 43.5
--- NOTE | 2024-12-15 12:01 | XR_ITS ---
PROCEDURE INFORMATION: Exam: XR Chest Exam date and time: 12/15/2024 12:51 PM Age: 49 years old Clinical indication: Shortness of breath; Additional info: SOA TECHNIQUE: Imaging protocol: Radiologic exam of the chest. Views: 1 view. Total images: 1 COMPARISON: CT ANGIO CHEST PE PROTOCOL 12/15/2024 12:50 PM FINDINGS: Lungs: Bilateral hyperinflation is present. Bronchiectatic changes right lung base. No focal pneumonia. Pleural spaces: No pleural effusion. No pneumothorax. Heart/Mediastinum: No cardiomegaly. Diaphragm: There is nonspecific elevation of the right hemidiaphragm. Bones/joints: The thoracic spine demonstrates mild degenerative changes at multiple levels. IMPRESSION: 1. Bilateral hyperinflation is present. 2. Bronchiectatic changes right lung base. 3. No focal pneumonia.
--- NOTE | 2024-12-15 12:01 | CT_ITS ---
PROCEDURE INFORMATION: Exam: CTA Chest With Contrast Exam date and time: 12/15/2024 12:50 PM Age: 49 years old Clinical indication: Pain; Chest pressure; Additional info: Chest pain, presyncopal symptoms TECHNIQUE: Imaging protocol: Computed tomographic angiography of the chest with contrast. Exam focused on the arteries. 3D rendering (Not supervised by radiologist): MIP and/or 3D reconstructed images were created by the technologist. Radiation optimization: All CT scans at this facility use at least one of these dose optimization techniques: automated exposure control; mA and/or kV adjustment per patient size (includes targeted exams where dose is matched to clinical indication); or iterative reconstruction. Contrast material: ISOVUE 370; Contrast volume: 70 ml; Contrast route: INTRAVENOUS (IV); COMPARISON: CR CXR2V XR chest 2V 06/11/2018 1:06 PM FINDINGS: Pulmonary arteries: Contrast within the main pulmonary artery is very poor at only 100 30 Hounsfield units. Pulmonary emboli can not be evaluated. Aorta: The aorta is unremarkable. Lungs: Minimal linear atelectatic changes or scarring involving the anterior portion of the right lower lobe. No consolidation. No masses. Pleural spaces: Unremarkable. No pneumothorax. No pleural effusion. Heart: Unremarkable. No cardiomegaly. No pericardial effusion. Lymph nodes: Large calcified left hilar lymph node. Diaphragm: Elevated right hemidiaphragm. Liver: Fatty liver. Gallbladder and biliary ducts: Cholecystectomy. Bones/joints: Unremarkable. No acute fracture. Soft tissues: Unremarkable. IMPRESSION: 1. Nondiagnostic pulmonary embolism study as there is very poor contrast noted within the pulmonary artery system. 2. Fatty liver with gallbladder clips.
--- OUTSIDE RECORDS SUMMARY | 2024-12-15 12:01 | XMS_ITS | Clinical Summary ---
Author Organization [facility] Address [address] [place] [address] Care Team Providers Care Measurement Analyst Name Role Phone Pineda Ta MD Primary Care Provider [phone] Family History Medical History Relation Name Comments Asthma Other 1 Cardiac disorder Other 2 Diabetes Other 3 Epilepsy Other 4 Psoriasis Other 5 Parkinson Disease Other 6 Relation Name Status Comments Other 1 Other 2 Other 3 Other 4 Other 5 Other 6 Social History Tobacco Use Types Packs/Day Years Used Date Smoking Tobacco: Former Comments Unknown Sex and Gender Information Value Date Recorded Sex Assigned at Not on file Legal Sex Female 8:04 PM EDT Gender Identity Not on file Sexual Orientation Not on file Last Filed Vital Signs Vital Sign Reading Time Taken Comments Blood Pressure - - Pulse - - Temperature - - Respiratory Rate - - Oxygen Saturation - - Inhaled Oxygen Concentration - - Weight 113 kg (250 lb) 07/28/2020 11:45 AM EDT Height 160 cm (5' 3 ) 07/28/2020 11:45 AM EDT Body Mass Index 44.29 07/28/2020 11:45 AM EDT Plan of Treatment Not on file Care Teams Measurement Analyst Relationship Specialty Start Date End Date Pineda Ta MD [address] [address] PCP - General 07/17/20
--- NOTE | 2024-12-15 12:05 | CT_ITS ---
PROCEDURE INFORMATION: Exam: CT Head Without Contrast Exam date and time: 12/15/2024 12:48 PM Age: 49 years old Clinical indication: Other: New tremor TECHNIQUE: Imaging protocol: Computed tomography of the head without contrast. Radiation optimization: All CT scans at this facility use at least one of these dose optimization techniques: automated exposure control; mA and/or kV adjustment per patient size (includes targeted exams where dose is matched to clinical indication); or iterative reconstruction. COMPARISON: MR - VENHEADWO MR venography head wo con 06/28/2018 8:13 AM FINDINGS: Brain: No evidence of acute parenchymal hemorrhage, extra-axial collection or local regional mass effect. Cerebral ventricles: The ventricles, sulci and cisterns are normal in size and configuration. No hydrocephalus or midline structure shift Pituitary gland and sella: Sellar/parasellar structures, orbits and craniocervical junction are unremarkable Paranasal sinuses: Visualized sinuses are unremarkable. No fluid levels. Mastoid air cells: Visualized mastoid air cells are well aerated. Bones: No calvarial fracture Soft tissues: Unremarkable. IMPRESSION: 1. No acute intracranial abnormality. No calvarial fracture. 2. If focal neurological symptoms persist brain MRI can be obtained for better evaluation
--- NOTE | 2024-12-15 12:05 | HMH.EDCP ---
Discharge Plan Disposition Patient Disposition: Home, Self-Care Prescriptions Prescriptions: No Action Fish Oil 350-600 mg capsule 1 cap PO DAILY montelukast 10 mg tablet 10 mg PO QPM 90 Days Qty: 90 3RF losartan 50 mg tablet 50 mg PO DAILY rosuvastatin [Crestor] 20 mg tablet 20 mg PO DAILY Nexplanon 68 mg implant 1 dose SUBDERMAL DAILY loratadine [Allergy Relief (loratadine)] 10 mg tablet 10 mg PO DAILY cholecalciferol (vitamin D3) 25 mcg (1,000 unit) capsule 25 mcg PO DAILY biotin 5,000 mcg tablet,disintegrating 10,000 mcg PO DAILY cyclobenzaprine 10 mg tablet 10 mg PO HS diclofenac sodium 75 mg tablet,delayed release (DR/EC) 75 mg PO BID budesonide-formoterol 160-4.5 mcg/actuation HFA aerosol inhaler 1 puff inhalation BID 90 Days Qty: 10.2 3RF epinephrine 0.3 mg/0.3 mL auto-injector 0.3 mg IM Q5-15M PRN (Reason: anaphylaxis) Qty: 2 0RF Rx Instructions: do not exceed 3 doses per episode Call 911 or your local emergency number immediately, even if you start feeling better after the injection. levothyroxine 100 mcg tablet 125 mcg PO DAILY Referrals Follow up/Referrals: Provider,Referral, MD [Referring, Medical] - See instructions Activity Restrictions/Add. Instructions Additional Instructions/Restrictions: You have been seen and evaluated in the emergency department. Please follow-up with your primary care provider. You may continue using your inhaler at home as needed. Return to the ED with worsening symptoms. Clinical Impressions Clinical Impression: Acute viral syndrome Instructions Patient Instructions: DI for Viral Syndrome Print Language Print Language: Nicaraguan Discharge ED Provider: Elidia Quiroz [facility] General Chief Complaint: Chest Pain Stated Complaint: CP Time Seen by Provider: 12/15/24 11:53 Mode of Arrival: Wheelchair Source of Information: Patient Description of Symptoms (Recalled from ER Triage Doc. by RN): patient states she was at [employer] around 1120 when she began coughing and started having chest tightness and substernal chest pain that is pressure.she also is hiaving right sided shoulder pain and bilateral hand numbness. she states she has history of asthma. History of Present Illness HPI narrative: This is a 49-year-old female with reported history of asthma and HTN who presents to the emergency department with left shoulder pain, chest pain, shortness of breath, and lightheadedness. This pain started suddenly at around 11 AM. She had a coughing episode and then began to experience chest tightness. She administered her inhaler to herself within the past hour, however has had no relief from this. No recent fever, vomiting, diarrhea, upper respiratory illness, abdominal pain, or back pain. No recent falls or trauma. Related Data Home Medications ?Medication ?Instructions ?Recorded ?Confirmed etonogestrel 68 mg subdermal 1 dose subdermal DAILY 03/08/18 09/23/24 implant (Nexplanon) control biotin 5,000 mcg disintegrating 10,000 mcg PO DAILY 11/17/21 09/23/24 tablet cholecalciferol (vitamin D3) 25 25 mcg PO DAILY 11/17/21 09/23/24 mcg (1,000 unit) capsule loratadine 10 mg tablet (Allergy 10 mg PO DAILY 11/17/21 09/23/24 Relief (loratadine)) omega-3s 350 [id number] 1 cap PO DAILY 06/02/22 09/23/24 [id number] oil 600 mg capsule (Fish Oil) losartan 50 mg tablet 50 mg PO DAILY 01/13/23 09/23/24 rosuvastatin 20 mg tablet (Crestor) 20 mg PO DAILY 01/13/23 09/23/24 cyclobenzaprine 10 mg tablet 10 mg PO HS 09/23/24 09/23/24 diclofenac sodium 75 mg 75 mg PO BID 09/23/24 09/23/24 tablet,delayed release levothyroxine 100 mcg tablet 125 mcg PO DAILY THYROID 09/23/24 09/23/24 Previous Rx's ?Medication ?Instructions ?Recorded montelukast 10 mg tablet 10 mg PO QPM 90 days #90 tabs 06/02/22 epinephrine 0.3 mg/0.3 mL 0.3 mg (0.3 mL) IM Q5-15M PRN 07/23/24 injection, auto-injector anaphylaxis #2 ea budesonide-formoterol HFA 160 1 puff inhalation BID shortness of 09/23/24 mcg-4.5 mcg/actuation aerosol breath or wheezing 90 days #10.2 inhaler grams Allergies Allergy/AdvReac Type Severity Reaction Status Date / Time penicillin G (PENICILLIN G) Allergy Mild Anaphylaxis Verified 09/23/24 13:03 [facility] Disclaimer: The information contained in this section may have been updated after the patient was seen, as this information can be updated by other users. Medical History Dyspnea on exertion Moderate persistent asthma Neuromuscular weakness Allergic rhinitis Dyspnea Asthma Hypothyroidism Sinusitis HTN (hypertension) Fatigue Daytime sleepiness Near syncope Dizziness There is no strong evidence to support central etiology. Intercurrent sinusitis may be contributing factor for dizziness but she was really treated for pansinusitis which residual sphenoidal inflammation. Plan: Referral to Dr. Mcadams, ENT and see if she needs further treatment. PT/ vestibular exercises. Return to work and drive after completion of vestibular exercises. Surgical History Hx of cholecystectomy History of section Family History Other Allergies Coronary artery disease Diabetes Hyperlipidemia Hypertension Social History Smoking Status: Never smoker smoking status stop date: 5 years ago alcohol intake: never substance use type: denies use current occupational status: employed Travel in the last 8 weeks?: None household members: family housing: house Have you lived/traveled outside US in past 30 days?: No Contact w/someone who lives/traveled outside US past 30 days?: No Exposure to someone with infectious disease in past 14 days?: No Do you have a fever (greater than 100.4 F or 38 C)?: No Have you tested positive for COVID-19?: No Exposed to someone with COVID-19 in past 14 days?: No Do you have a sore throat?: No Do you have a cough?: No Do you have any weakness?: No Do you have any diarrhea?: No Are you experiencing any unusual bleeding?: No Do you have any muscle aches/pain?: No Do you have any abdominal pain?: No Are you experiencing loss of taste or smell?: No Other Medical History Have you received the Pneumonia Vaccine: No ROS Obtained: Yes All systems reviewed & no additional complaints except as documented Physical Exam General General appearance: alert and in no apparent distress Head Head exam: atraumatic and normocephalic Eye Eye exam: Present PERRL ENT ENT exam: Present mucous membranes moist Neck Neck exam: Present normal inspection Chest Chest inspection: Present symmetric chest wall rise; Absent tenderness Respiratory Respiratory exam: Present normal lung sounds bilaterally and other (no prolonged expiratory phase, normal air entry); Absent respiratory distress, wheezes or accessory muscle use Cardiovascular Cardiovascular exam: Present regular rate and normal rhythm Abdominal Exam Abdominal exam: Present soft; Absent distention or tenderness Extremities Exam Extremities exam: Present normal inspection and other (no LE edema); Absent tenderness Neurological Exam Neurological exam: Present alert, oriented X3 and other (Mild diffuse tremor noted on exam, no focal neurologic deficit or sensory deficit, alert and oriented) Psychiatric Psychiatric exam: Present normal affect Skin Skin exam: Present warm and dry HEART Score HEART Score HEART Score assessment performed?: Yes History (anamnesis): Slightly suspicious ECG: Normal Age: 45-65 years Risk factors: 1-2 risk factors Troponin: </= normal limit HEART Score: 2 Critical Care Critical Care Time Critical Care Time: No Medical Decision Making Medical Records Medical records reviewed: Yes I reviewed the patient's medical records. Hieu Inquiry Pt receiving controlled substance: No Hieu was queried for this patient: No Vital Signs Vital Signs: 12/15/24 11:50 12/15/24 12:02 12/15/24 12:24 Temperature 98.3 F Temperature Source Oral Pulse Rate 91 H Pulse Rate [Right Radial] 93 H Respiratory Rate 15 15 17 Blood Pressure 131/73 150/79 H Blood Pressure [Right Arm] 170/98 H Blood Pressure Mean [Right Arm] 122 Blood Pressure Source [Right Arm] Automatic Cuff Blood Pressure Position [Right Arm] Supine 02 Sat by Pulse Oximetry 100 98 97 Oxygen Delivery Method Room Air Room Air Room Air 12/15/24 12:30 12/15/24 13:19 12/15/24 13:30 Temperature Temperature Source Pulse Rate 86 80 Pulse Rate [Right Radial] Respiratory Rate 8 L 14 13 Blood Pressure 131/81 135/76 142/84 H Blood Pressure [Right Arm] Blood Pressure Mean [Right Arm] Blood Pressure Source [Right Arm] Blood Pressure Position [Right Arm] 02 Sat by Pulse Oximetry 97 97 97 Oxygen Delivery Method Room Air Room Air Room Air 12/15/24 14:01 12/15/24 14:35 Temperature 98.2 F Temperature Source Pulse Rate 80 87 Pulse Rate [Right Radial] Respiratory Rate 14 18 Blood Pressure 145/69 H 131/72 Blood Pressure [Right Arm] Blood Pressure Mean [Right Arm] Blood Pressure Source [Right Arm] Blood Pressure Position [Right Arm] 02 Sat by Pulse Oximetry 97 Oxygen Delivery Method Room Air Lab Data Lab results reviewed: Yes I reviewed the patient's lab results. Labs: Lab Results 12/15/24 11:52: WBC 12.1 H, RBC 4.89, Hgb 14.5, Hct 44.1, MCV 90.2, MCH 29.7, MCHC 32.9, RDW 12.6, Plt Count 230, MPV 10.6 H, Neut % (Auto) 63.9, Lymph % (Auto) 27.3, Barnes % (Auto) 6.0, Eos % (Auto) 1.6, Baso % (Auto) 0.5, Neut # (Auto) 7.8, Lymph # (Auto) 3.3, Barnes # (Auto) 0.7, Eos # (Auto) 0.2, Baso # (Auto) 0.1, VBG pH 7.35, VBG pCO2 44.4, VBG pO2 34.1, VBG HCO3 24.1, VBG Total CO2 25.5, VBG O2 Saturation 65.2, VBG Base Excess -1.4, VBG Lactic Acid 2.0, Sodium 139, Potassium 4.1, Chloride 102, Carbon Dioxide 27, Anion Gap 14.1, BUN 13, Creatinine 0.70, Estimated Creat Clear 82, Estimated GFR 90, Est GFR ( Amer) 109, Glucose 110 H, Calcium 9.7, Total Bilirubin 0.6, AST 27, ALT 25, Alkaline Phosphatase 80, Troponin I < 0.01, Total Protein 7.6, Albumin 4.3, Globulin 3.3 H, Albumin/Globulin Ratio 1.3, Lipase 210, Serum HCG, Qual Negative, HCV Ab POLLY w/Rflx PCR Qn Negative, HIV Ag/Ab Combo Qual Negative 12/15/24 14:25: Troponin I < 0.01 12/15/24 11:52 12/15/24 11:52 Response Orders (Tests/Meds): ED MEDICATIONS Discontinued Medications Generic Name Dose Route Start Last Admin Trade Name Freq PRN Reason Stop Dose Admin Acetaminophen 1,000 mg 12/15/24 12:01 12/15/24 12:12 Acetaminophen 500mg Tab PO 12/15/24 12:02 1,000 mg ONCE ONE Administration Aspirin 325 mg 12/15/24 12:01 12/15/24 12:12 Aspirin 325mg Tablet PO 12/15/24 12:02 325 mg ONCE ONE Administration Iopamidol 70 ml 12/15/24 12:47 12/15/24 12:50 Iopamidol-370 (76%);100ml Bottle IV 12/15/24 12:48 70 ml ONCE ONE Administration Ketorolac Tromethamine 15 mg 12/15/24 13:31 12/15/24 13:39 Ketorolac 15mg/Ml Vial IV 12/15/24 13:32 Not Given ONCE ONE Sodium Chloride 10 ml 12/15/24 12:47 12/15/24 12:50 Sodium Chloride 0.9% 10ml Syr (Rad Only) IV 01/14/25 12:46 10 ml NEEDED PRN Administration Maintain IV Site Sodium Chloride 50 ml 12/15/24 12:47 12/15/24 12:49 0.9 % Sodium Chloride 50 Ml Vial IV 12/15/24 12:48 50 ml ONCE ONE Administration ORDERS Category Date Time Status CT angio chest PE protocol Stat Cat Scan 12/15/24 12:[address] head/brain wo con Stat Cat Scan 12/15/24 12:05 Completed Chest XR -- portable [XR chest portable] Stat Exams 12/15/24 12:01 Completed CBC w/Auto Diff [Complete Blood Count Auto Diff] Stat Lab 12/15/24 11:52 Completed CMP [Comprehensive Metabolic Panel] Stat Lab 12/15/24 11:52 Completed HCG Qualitative, Serum Stat Lab 12/15/24 11:52 Completed HIV Combo Stat Lab 12/15/24 11:52 Completed Hepatitis C Ab Qual. W/ RFX Stat Lab 12/15/24 11:52 Completed Lipase Stat Lab 12/15/24 11:52 Completed Troponin I Q3H Lab 12/15/24 11:52 Completed Troponin I Q3H Lab 12/15/24 14:25 Completed VBG [Venous Blood Gas] Stat RT 12/15/24 11:52 Completed ECG Data Tracing #1: Attestation: I reviewed this ECG and interpreted as documented below: ECG Narrative: Normal sinus rhythm at a rate of 92. Normal intervals. Normal axis. No acute ischemic changes. Tracing #2: Attestation: I reviewed this ECG and interpreted as documented below: ECG Narrative: Normal sinus rhythm at a rate of 85. Normal intervals. Normal axis. No acute ischemic changes. Stable in comparison to recent. MDM Narrative Medical Decision Narrative: This is a 49yo female who presents to the ED with SOA. Differential diagnosis includes: viral syndrome, asthma exacerbation, PE, ACS, PNA, pleural effusion, allergic reaction On my initial assessment, the patient is hemodynamically stable and in no acute distress. She is subjectively dyspenic without significantly increased work of breathing. Her pulmonary exam is not consistent with asthma exacerbation - she has no wheezing, good air entry. She has no skin findings, uvular swelling, or fever. Considering the sudden onset symptoms, workup will be focused on ruling out ACS/PE. She does have a slight tremor on exam that is diffuse, will also order CT head with r/o intracranial process. CBC notable for mild nonspecific leukocytosis with WBC 12. No anemia, platelets wnl. VBG with no acute acid base abnormality and normal lactate. CMP unmarkable. LIpase wnl and negative serum hcg. O and 3 hour troponins are both <0.01. CT PE was limited d/t poor contrast timing, however no large PE, pneumonia, pleural effusion, pneumothorax, or other acute findings on my read. Radiology reads in agreement. CT head shows no obvious hemorrhage, ventriculomegaly, mass, or hypodensity on my read. Radiology reads in agreement. Ultimately, on reassessment after treatment with toradol and tylenol, patient reports improvement in her dyspnea but notes lasting body aches and fatigue. Clinically, her presentation is most consistent with nonspecific viral syndrome at this time. No concern for PE, ACS, PNA, or other emergent process. She feels comfortable with DC home. I recommended she follow up with her PCP in 48-72 hours and to re-present to the ED if symptoms persist.
[2024-12-15] MEDS: ACETAMINOPHEN 500MG TAB 1000 MG PO (12:12)
[2024-12-15] MEDS: ASPIRIN 325MG TABLET 325 MG PO (12:12)
[2024-12-15 12:14] LABS: Hematocrit 44.1 % (37.0-47.0); Hemoglobin 14.5 g/dL (12.2-16.2); Immature Granulocytes % 0.7 %; Lactate Venous 2.0 mmol/L (0.4-2.0); Mean Corpuscular HGB Conc 32.9 g/dL (31.8-35.4); Mean Corpuscular Hemoglobin 29.7 pg (27.0-31.2); Mean Corpuscular Volume 90.2 fl (81-99); Nucleated Red Blood Cells % 0 %; Platelet Count 230 K/mm3 (142-424); Red Blood Count 4.89 M/mm3 (4.20-5.40); Red Cell Distribution Width-SD 41.7 fL; VBG HCO3 24.1 mmol/L (23-30); VBG PCO2 44.4 mmol/L (35-51); VBG PH 7.35 mmol/L (7.31-7.41); VBG PO2 34.1 mmol/L (28-40); White Blood Count 12.1 K/mm3 (4.8-10.8)
[2024-12-15 12:16] LABS: Albumin Level 4.3 g/dl (3.5-5.0); Chloride 102 mmol/L (98-107); Sodium 139 mmol/L (136-145)
[2024-12-15 12:17] LABS: Potassium 4.1 mmoL/L (3.5-5.1)
[2024-12-15 12:19] LABS: Alanine Aminotransferase 25 U/L (12-78); Alkaline Phosphatase 80 U/L (38-126); Anion Gap 14.1 mEq/L (5-15); Aspartate Amino Transferase 27 U/L (14-36); Bilirubin,Total 0.6 mg/dl (0.2-1.3); Blood Urea Nitrogen 13 mg/dl (7-17); Carbon Dioxide 27 mmol/L (22.0-30.0); Creatinine Clearance Estimated 82 mL/min (50-200); Creatinine,Serum 0.70 mg/dl (0.52-1.04); Estimated Glomerular Filt Rate 90 ml/min (>60); GFR (African American) 109 ML/MIN (>60); Lipase 210 U/L (23-300)
[2024-12-15 12:20] LABS: Albumin/Globulin Ratio 1.3 (1.1-1.8); Calcium 9.7 mg/dl (8.4-10.2); Globulin 3.3 g/dL (1.3-3.2); Glucose 110 mg/dl (74-100); Total Protein,Serum 7.6 g/dl (6.3-8.2)
[2024-12-15 12:33] LABS: HCG Qualitative, Serum Negative (Negative)
[2024-12-15 12:39] LABS: Troponin I < 0.01 ng/ml (0.00-0.034)
--- NOTE | 2024-12-15 12:41 | PC.NURSE ---
per no cultures needed
--- NOTE | 2024-12-15 12:42 | PC.NURSE ---
provider states no cultures needed
[2024-12-15] MEDS: 0.9 % SODIUM CHLORIDE 50 ML VIAL IV (12:49)
[2024-12-15] MEDS: IOPAMIDOL-370 (76%);100ML BOTTLE 70 ML IV (12:50)
[2024-12-15] MEDS: SODIUM CHLORIDE 0.9% 10ML SYR (RAD ONLY) 10 ML IV (12:50)
[2024-12-15 13:31] LABS: Hepatitis C Ab Qual. W/ RFX NEGATIVE (Negative)
[2024-12-15 15:00] LABS: Troponin I < 0.01 ng/ml (0.00-0.034)
== END 2024-12-15 14:40 | disposition home or self-care (01) ==
PROVIDERS: Emergency Provider Student in an Organized Health Care Education/Training Program; PCP Pediatrics
DX: R07.9 Chest pain, unspecified (principal); R06.02 Shortness of breath; R42 Dizziness and giddiness; R53.83 Other fatigue; B34.9 Viral infection, unspecified
CPT/HCPCS: 70450; 71045; 71275; 80053; 82803; 83690; 84484; 84703; 85025; 86803; 87389; 93005; 99285; Q9967

== ENCOUNTER 2025-01-01 08:17 | Outpatient (CLI) | payer BC, SELFPAY ==
--- NOTE | 2025-01-01 08:19 | MM_ITS ---
PROCEDURE INFORMATION: Exam: MG Bilateral Screening 3D Mammography Exam date and time: 01/01/2025 8:30 AM Age: 49 years old Clinical indication: Screening mammogram TECHNIQUE: Imaging protocol: Bilateral Screening tomosynthesis and 2D mammography including computer-aided detection (CAD) when performed. COMPARISON: 1. MG MM DIG SCREENING MAMM BI W/CAD 01/22/2024 4:34 PM 2. US BREAST LT COMPLETE 02/19/2024 10:06 AM FINDINGS: MAMMOGRAPHY: Breast composition: There are scattered areas of fibroglandular density. Mass: None. Architectural distortion: No new or suspicious architectural distortion. Calcifications: No new or suspicious calcifications are present Asymmetric density: No new or suspicious asymmetric density is present Skin thickening: None. Axillary adenopathy: None. IMPRESSION: No mammographic evidence of malignancy. Recommend annual screening mammography unless otherwise clinically indicated. ASSESSMENT: BI-RADS category 1: Negative.
--- OUTSIDE RECORDS SUMMARY | 2025-01-01 08:49 | XMS_ITS | Clinical Summary ---
Author Organization [facility] Address [address] [place] [address] Care Team Providers Care Change Control Manager Name Role Phone Pineda Ta MD Primary Care Provider [phone] Family History Medical History Relation Name Comments [...] of Treatment Not on file Care Teams Change Control Manager Relationship Specialty Start Date End Date Pineda Ta MD [address] [address] PCP - General 07/17/20
== END 2025-01-01 23:59 | disposition home or self-care (01) ==
LOC: RAD 08:17
PROVIDERS: PCP Pediatrics; Visit Provider Pediatrics
DX: Z12.31 Encounter for screening mammogram for malignant neoplasm of breast (principal); R92.323 Mammographic fibroglandular density, bilateral breasts
CPT/HCPCS: 77063; 77067

== ENCOUNTER 2025-02-28 07:54 | Outpatient (CLI) | payer BC, SELFPAY ==
--- OUTSIDE RECORDS SUMMARY | 2025-02-28 07:57 | XMS_ITS | Clinical Summary ---
Author Organization [facility] Address [address] [facility] [place] [address] Care Team Providers Care Rug Scratcher Name Role Phone Keyon SHAH MD, Pineda Lew Primary Care Provid er Allergies Active Allergy Reactions Criticality Noted Date Comments Penicillins 11/27/2022 Medications fluticasone-umec lidin-vilanter (Trelegy Ellipta) 200-62.5-25 mcg dsdv 07/22/2022 Active ketotifen (ZADITOR) 0.025 % (0.035 %) ophthalmic solution Apply one drop into each eye one to two times a day 07/27/2021 Active Social History Tobacco Use Types Packs/Day Years Used Date Smoking Tobacco: Never Assessed Comments No Sex and Gender Information Value Date Recorded Sex Assigned at Not on file Legal Sex Female 7:22 PM EDT Gender Identity Not on file Sexual Orientation Not on file Last Filed Vital Signs Vital Sign Reading Time Taken Comments Blood Pressure 130/85 11/27/2022 11:49 AM EDT Pulse 78 11/27/2022 11:49 AM EDT Temperature 36.9 C (98.5 F) 11/27/2022 11:49 AM EDT Respiratory Rate 20 11/27/2022 11:49 AM EDT Oxygen Saturation 99% 11/27/2022 11:49 AM EDT Inhaled Oxygen Concentration - - Weight 108 kg (238 lb) 11/27/2022 11:49 AM EDT Height 160 cm (5' 3 ) 11/27/2022 11:49 AM EDT Body Mass Index 42.16 11/27/2022 11:49 AM EDT Plan of Treatment Health Maintenance Due Date Last Done Comments Colorectal Cancer: COLONOSCO PY Screening every 10 yrs (or Modifier) 1977 Depression: Screening Annual ly using PHQ-2/9 in Adults 18 yrs or above (or HM Modifier)([facility]) 11/16/1995 Hepatitis C Virus Infection in Adolescents and Adults: Screening (or Modifier) ([facility]) 11/16/1995 SDSC Screening Reminder: Candie johnson for all adults ([facility]) 11/16/1995 Tobacco Smoking Cessation: i n Adults excluding Women: Behavioral and Pharmacotherapy Interventions ([facility]) 11/16/1995 DTaP/Tdap/Td Vaccines ([facility]) (1 - Tdap) 1996 Cervical Cancer Screenin 1-65 yrs of age (or Modifier) 1998 Cervical Cancer Screening: P ap every 3 yrs pts age 21-65 1998 Cervical Cancer: Pap Screeni ng with Modifier timing ([facility]) 1998 Cervical Cancer: hrHPV alone or with cotesting Pap for Pts 30-65yrs screening every 5yrs ([facility]) 1998 Colorectal Cancer Screening 45 -75 Yrs (or HM Modifier) 2022 Colorectal Cancer: FLEXIBLE SIGMOIDOSCOPY Screening every 5 yrs 2022 Colorectal Cancer: Fecal Immunochemical Test (FIT) Annually [facility] 2022 Colorectal Cancer: High-sens itivity gFOBT Screening Annually [facility] 2022 Colorectal Cancer: Stool Col oguard Screening every 3 yrs 2022 Colorectal Cancer:CT Colonog aarti Screening every 5 yrs 2022 Flu Vaccination: Yearly for ages 18mos through 64 years (or Modifier)([facility]) 10/04/2024 COVID-19 Vaccine Screening: Initial Series and Booster Status ([facility]) ( - 2024- season) 2024 Zoster/Shingles Vaccine Seri es Screening: Adults aged 18+ yrs (or HM Modifiers)([facility]) (1 of 2) 11/16/2027 Pneumococcal Vaccination Scr eening: Pts 0-19 & 19-49 yrs of age ([facility]) Aged Out No longer eligible based on patient's age to complete this topic Medical Devices Not on file Care Teams Rug Scratcher Relationship Specialty Start Date End Date Pineda Ta II, MD [address] [place], [place] [id number] PCP - General Internal Medicine 11/27/22
--- OUTSIDE RECORDS SUMMARY | 2025-02-28 07:57 | XMS_ITS | Clinical Summary ---
Author Organization [facility] Address [address] [place] [address] Care Team Providers Care Teacher Of Family And Consumer Science Name Role Phone Pineda Ta MD Primary Care Provider [phone] Family History Medical History Relation Name Comments [...] of Treatment Not on file Care Teams Teacher Of Family And Consumer Science Relationship Specialty Start Date End Date Pineda Ta MD [address] [address] PCP - General 07/17/20
--- OUTSIDE RECORDS SUMMARY | 2025-02-28 07:57 | XMS_ITS ---
Author Organization Unknown ENCOUNTERS Encounter Performer Location Date Diagnosis Diagnosis Status Emergency [facility] [address] [facility] [address] [place] [address] [id number] JLUIS Pre Admit [facility] [address] [facility] [address] [place] [address] [id number] Emergency [facility] [address] [facility] [address] [place] [address] [id number] JLUIS Pre Admit [facility] [address] [facility] [address] [place] [address] [id number] Emergency [facility] [address] [facility] [address] [place] [address] [id number] JLUIS Pre Admit [facility] [address] [facility] [address] [place] [address] [id number] Emergency [facility] [address] [facility] [address] [place] [address] [id number] JLUIS Pre Admit [facility] [address] [place] [address] [id number] Emergency [facility] [address] [facility] [address] [place] [address] [id number] JLUIS *Note: Encounters from your own facility or health system may be excluded. Allergies, Adverse Reactions, Alerts Allergen Type Severity Identification Date penicillin G drug allergy 2 [id number] Medications Name Date Quantity Days Supplied GPI Number
--- NOTE | 2025-02-28 08:17 | PC.NURSE ---
Pre and Post Spirometry completed without incident. Albuterol 0.083% given via HHN, per written protocol, Pt tolerated tx well.
[2025-02-28] MEDS: ALBUTEROL 0.083% 2.5 MG/3 ML NEB IH (08:19)
== END 2025-02-28 23:59 | disposition home or self-care (01) ==
PROVIDERS: PCP Pediatrics; Visit Provider Internal Medicine Pulmonary Disease
DX: R06.09 Other forms of dyspnea (principal)
CPT/HCPCS: 94010; 94618